=== PATIENT | male | born 1960 | race African-American/Black ===

== ENCOUNTER 2018-01-21 10:53 | Outpatient (CLI) | payer OTHER | END 2018-01-21 10:54 | disposition home or self-care (01) | LOC: SC 10:53 | PROVIDERS: ATTEND Internal Medicine Pulmonary Disease | DX: G47.33 Obstructive sleep apnea (adult) (pediatric) (principal) | CPT/HCPCS: 99203; 99212 ==

== ENCOUNTER 2018-02-25 13:27 | Outpatient (CLI) | payer OTHER | END 2018-02-25 13:28 | disposition home or self-care (01) | LOC: SC 13:27 | PROVIDERS: ATTEND Internal Medicine Pulmonary Disease | DX: G47.33 Obstructive sleep apnea (adult) (pediatric) (principal) | CPT/HCPCS: 99212; 99213 ==

== ENCOUNTER 2018-04-21 20:27 | Outpatient (CLI) | payer OTHER | END 2018-04-21 20:28 | disposition home or self-care (01) | LOC: SC 20:27 | PROVIDERS: ATTEND Internal Medicine Pulmonary Disease | DX: G47.33 Obstructive sleep apnea (adult) (pediatric) (principal) | CPT/HCPCS: 95810 ==

== ENCOUNTER 2018-06-10 09:08 | Outpatient (CLI) | payer OTHER | END 2018-06-10 09:09 | disposition home or self-care (01) | LOC: SC 09:08 | PROVIDERS: ATTEND Nurse Practitioner Family | DX: G47.33 Obstructive sleep apnea (adult) (pediatric) (principal) | CPT/HCPCS: 99212; 99214 ==

== ENCOUNTER 2018-08-12 09:48 | Outpatient (CLI) | payer OTHER | END 2018-08-12 09:49 | disposition home or self-care (01) | LOC: SC 09:48 | PROVIDERS: ATTEND Nurse Practitioner Family | DX: G47.33 Obstructive sleep apnea (adult) (pediatric) (principal) | CPT/HCPCS: 99212; 99214 ==

== ENCOUNTER 2018-10-21 09:16 | Outpatient (CLI) | payer OTHER | END 2018-10-21 09:17 | disposition home or self-care (01) | LOC: SC 09:16 | PROVIDERS: ATTEND Nurse Practitioner Family | DX: G47.33 Obstructive sleep apnea (adult) (pediatric) (principal) | CPT/HCPCS: 99212; 99214 ==

== ENCOUNTER 2023-05-08 14:46 | Outpatient (CLI) | payer OTHER ==
--- NOTE | 2023-05-08 15:23 | Sleep Patient Instructions ---
Sleep Center Visit Summary - Patient Visit Information Reason for Visit: Initial consult to re-establish care for CPAP therapy - Patient Instructions Additional Instructions: You will continue with CPAP therapy with pressure set at 6-10 cmH2O. A supply prescription will be updated with your DME. We added an update for a new device to your prescription. Please call the office once you have your new CPAP to set up a compliance visit. We encourage you to continue to try to lose weight. Please follow up with the sleep care office one month after obtaining new CPAP. - Clinic Information Contact: [facility] [address] [place] [address] [email or web address] T: [phone]
--- NOTE | 2023-05-08 15:28 | SLEEP CARE CONSULTATION ---
Information from patient questionnaire entered by Iris Castle. I have reviewed and concur with the information entered by Iris Castle. This document represents the service I personally performed and the decisions made by me, Donna Jerome ARNP. History of Present Illness Service Date and Time: 05/08/2023 1446 Reason for Visit: New patient, sleep apnea on CPAP therapy, Re-establish care Chief Complaint: reports: Other (UPDATE SUPPLIES) Date of Onset: all life Usual bedtime: 10PM Time it takes to fall asleep: 15-30MIN Snores at night: Yes Observed to quit breathing while asleep: Yes Sleeps alone due to snoring: No Number of times waking at night: DONT KNOW Reasons for waking at night: reports: Bathroom, Other (UNKNOWN) Toss, Turn, or Twitch while sleeping: Yes Recalls having dreams: Yes Usually gets out of bed at: 4AM Feels refreshed in the morning: No Morning headache: No Sleepy or fatigued during the day: Yes Ever fallen asleep while driving: No Takes day naps: Yes Dreams during day naps: No Prior sleep studies: Yes Additional HPI information: STEFANIA HOOKS was previously diagnosed to have very severe, AHI 72.1, obstructive sleep apnea-hypopnea syndrome as documented to be done by [facility] in 2011 (His sleep study dated 01/14/2008 at [facility] showed severe LIAN with AHI 42) and comes in today to re-establish care for CPAP therapy. - Parasomnia Symptoms Ever been unable to move upon waking from sleep: No Walks in sleep: No Talks in sleep: No Ever acted out dreams in sleep: No Ever felt weak in the knees when startled or emotional: No Bothered by creepy, crawly, restless sensations in legs: No Problems with memory or concentration: No CPAP Compliance Data - Data Reviewed with Patient Average duration of nightly device use: 6 hours 4 minutes Compliance rate %: 94 (86/90 days used) Current pressure setting (cmH2O): 6-10 Average residual AHI: 1.9 Central apnea: 0.3 Obstructive apnea: 0.8 Average large leak: 0 Compliance data discussion: He has a Resmed Airsense 10 that was last update in 2014. He gets his supplies from [employer]. He is using a full face mask, ResMed AirTouch F20. He changes his mask cushion regularly. Subjective Patient concerns: reports: dry mouth, nose, throat (occasionally). denies: aerophagia, mask discomfort, air blowing in eyes, mask leak noise, condensation in mask/hose, nasal congestion, epistaxis Observed to snore while using device: No Current pressure setting perceived as: comfortable On therapy, patient: reports: sleeping better, awakening more refreshed, being more awake and alert during the day, more rested overall. 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 Patient is and lives in . Have you smoked in the past 12 months: No Alcohol use: Yes Alcohol amount and frequency: 1-2 DRINKS PER MONTH Caffeine use: Yes Caffeine amount and frequency: 2 CUPS COFFEE DAILY Family History Family history of sleep disordered breathing: Yes Family Hx Sleep Apnea: Sibling: Snoring Allergies and Home Medications Known drug allergies: No Drug allergies reviewed: Yes Home medication list reviewed: Yes Allergy and home medication list: Medications: Zyrtec Aspirin Simvastatin Synthroid Montelukast Flonase nasal spray Review of Systems Weight gain over past 5 years: 5 Cardiovascular: denies: high blood pressure Gastrointestinal: denies: heartburn Urinary: reports: impotence Neurological: denies: headaches Psychiatric: denies: anxiety, depression Ear/Nose/Throat: reports: nasal congestion, wisdom teeth removed. denies: tonsillectomy Endocrine: reports: thyroid disease (over active thyroid) Musculoskeletal: reports: back pain Immunologic: reports: sneezing Physical Exam Vital signs obtained and entered by: IRIS Garcia MA Blood Pressure: 122/68 (LEFT ARM) Cuff size: regular Heart Rate: 78 O2 Saturation: 97 Height: 5 ft 7 in Weight: 191 lb 9.6 oz Body Mass Index: 29.9 BMI Classification: Overweight Neck circumference: 16 Heart: regular rate and rhythm Lungs: clear bilaterally Impression and Plan 1. Obstructive Sleep Apnea-Hypopnea Syndrome, very severe, with good treatment compliance and good apnea control. On CPAP therapy, the patient has better sleep quality and is more rested overall. He was seen here last in 2018. He was seeing a provider in [facility] but came back here where he had been seen before to re- establish care to update his supplies prescription. He has an Airsense 10 that was last updated in 2015. The patients CPAP is over 5 years old and of reasonable use. Thus, the CPAP will be updated. A DWO prescription will be made. Compliance guidelines for new device and follow up discussed. Patient's apnea severity and rationale for treatment to reduce apnea, improve sleep quality and reduce cardiovascular and cerebrovascular events was reviewed. 2. Overweight, unspecified. Currently patients BMI is 29.9. Obesity increases the risk of apnea, CPAP pressure requirements and overall health risks especially cardiovascular and diabetes. Thus patient is advised to lose weight. * Continue auto CPAP pressure at 6-10 cmH2O * Update machine * Update supplies * Notify me if snoring with mask or feeling that the pressure is too much or too little * Attempt to lose weight * Call this office if any problems using CPAP * Return for follow up one month after obtaining new device, or sooner if concerns arise Counseling Topics: Spare mask, Weight loss health impact Visit Type: In Office Time Spent with Patient (minutes): 30 Provider Statement: I spent 100% of the Face to Face Visit with the patient with greater than 50% spent counseling the patient and coordination of care.
[2023-05-08 15:34] VITALS: BP 122/68
== END 2023-05-08 14:47 | disposition home or self-care (01) ==
LOC: SC 14:46
PROVIDERS: ATTEND Nurse Practitioner Family
DX: G47.33 Obstructive sleep apnea (adult) (pediatric) (principal); E66.3 Overweight; Z68.29 Body mass index [BMI] 29.0-29.9, adult
CPT/HCPCS: 99203; 99212